=== PATIENT | female | born 1970 | race Two or more races ===

== ENCOUNTER 2024-02-12 10:03 | Emergency (ER) | payer OTHER ==
[~2024-02-12] VITALS: Ht 157.5 cm; Wt 65.8 kg
[2024-02-12] MEDS ORDERED: COZAAR100 MG PO (10:11)
[2024-02-12] MEDS ORDERED: 0.9 % SODIUM CHLORIDE 500 ML IV ONE (10:30)
[2024-02-12] MEDS ORDERED: TRAMADOL HCL 50 MG TABLET PO ONE ×2 (10:30→10:45)
[2024-02-12 10:55] LABS: HEMATOCRIT 42.8 % (36.0-45.00); HEMOGLOBIN 14.7 g/dL (12.0-15.00); MEAN CELL VOLUME 89.7 fL (80.00-100.00); MEAN CORPUSCULAR HEMOGLOBIN 30.7 pg (27.00-32.0); MEAN CORPUSCULAR HGB CONC 34.3 g/dl (32.0-36.0); PLATELET COUNT 297 K/uL (150-450); RED BLOOD COUNT 4.77 M/uL (4.00-6.00); RED CELL DISTRIBUTION WIDTH 13.1 % (11.5-14.5)
[2024-02-12] MEDS ORDERED: DIPHENHYDRAMINE HCL 50 MG/ML VIAL 1ML IM ONE (11:45)
== END 2024-02-12 12:19 | disposition home or self-care (01) ==
LOC: ER 10:04
PROVIDERS: General Practice
DX: U07.1 COVID-19 (principal); A90 Dengue fever [classical dengue]; J00 Acute nasopharyngitis [common cold]; I10 Essential (primary) hypertension; N85.8 Other specified noninflammatory disorders of uterus
CPT/HCPCS: 36415; 96365; 96372; 99282; J1200; J7042